=== PATIENT | female | born 1995 | race Hispanic/Latino ===

== ENCOUNTER 2018-10-16 23:24 | Observation (INO) | payer SELFPAY ==
[~2018-10-16] VITALS: Ht 170.2 cm; Wt 139.4 kg
--- OUTSIDE RECORDS SUMMARY | 2018-10-16 23:27 | XMS REPORT | Continuity of Care Document ---
Author Author [facility] Organization [facility] Address [address] [place] [address] ;ext= Care Team Providers Care J2Ee Programmer Name Role Phone DR FRANNY ARCE Admfrancis DR FRANNY ARCE Attfrancis [facility] Admission Diagnosis Code Admission Diagnosis Date [id number] Cough Social History Element Description Code Description Smoking Status Code System Start Date End Date Smoking Status [id number] Current some day smoker SNOMED-CT Problems Code Code System Problem Name Start Date End Date Status [id number] SNOMED-CT Dehydration 06/18/2018 Active 728073764 SNOMED-CT Viral syndrome 06/18/[address] Description 988760247 Drug Treatment Unknown Allergies * No Known Allergies Results Laboratory Results Order: STAT LAB BETA HCG Specimen Source: BLOOD Body Site: [facility] Test Result Flag Range Unit Date 1BHCG II <5.00 H 0.00-4.80 IU/L 06/18/2018 15:40 Note: A NEW EXPANDED METHOD FOR BHCG WILL BE INTRODUCED ON NOVEMBER 25, 2006. THE DYNAMIC RANGE OF THE TEST HAS BEEN INCREASED ALLOWING FOR FEWER DILUTUIONS, AND THE GESTATION WEEKS HAVE BEEN AGGREGATED TO ALLOW FOR EASE OF INTREPRETATION. PLEASE REFER TO THE INTERPRETATION TABLE BELOW. Beta hCG levels in non- individuals=<4.83 IU/L GESTATIONAL AGE: 1-10 weeks 63.70 - 528586.00 IU/L 11-15 weeks 86990.00 - 986022.00 IU/L 16-22 weeks 9383.80 - 38283.00 IU/L 23-40 weeks 1737.20 - 23680.00 IU/L Detection of very Low Levels of hCG does not exclude . Repeat testing after 48 Hrs. is recommended. THIS ASSAY SHOULD NOT BE USED TO DIAGNOSE ANY CONDITION UNRELATED TO . * Performing Lab Footnotes:* [address] [place] [address] [id number] - [address] [facility] [address] [address] [place] [address] [facility] - MD: DIRECTOR JESSICA MORENO Order: STAT LAB CBC W AUTO DIFF Specimen Source: BLOOD Body Site: INC Test Result Flag Range Unit Date 1Leukocytes^^corrected for nucleated erythrocytes:NCnc:Pt:Bld:Qn:Automated count 5.66 4.80-10.80 10^3/ul 06/18/2018 15:40 789-8 1Erythrocytes:NCnc:Pt:Bld:Qn:Automated count 5.43 H 4.20-5.40 10^6/ul 06/18/2018 15:40 718-7 1Hemoglobin:MCnc:Pt:Bld:Qn 14.4 H 12.0-14.0 gm/dl 06/18/2018 15:40 4544-3 1Hematocrit:VFr:Pt:Bld:Qn:Automated count 44.7 37.0-47.0 % 06/18/2018 15:40 787-2 1Erythrocyte mean corpuscular volume:EntVol:Pt:RBC:Qn:Automated count 82.3 81.0-99.0 fL 06/18/2018 15:40 785-6 1Erythrocyte mean corpuscular hemoglobin:EntMass:Pt:RBC:Qn:Automated count 26.5 L 27.0-31.0 pg 06/18/2018 15:40 786-4 1Erythrocyte mean corpuscular hemoglobin concentration:MCnc:Pt:RBC:Qn:Automated count 32.2 L 33.0-37.0 gm/dl 06/18/2018 15:40 777-3 1Platelets:NCnc:Pt:Bld:Qn:Automated count 219 130-400 10^3/ul 06/18/2018 15:40 788-0 1Erythrocyte distribution width:Ratio:Pt:RBC:Qn:Automated count 14 11.5-14.5 % 06/18/2018 15:40 56118-6 1Platelet mean volume:EntVol:Pt:Bld:Qn:Automated count 9.9 A 7.4-10.4 fL 06/18/2018 15:40 770-8 1Neutrophils/100 leukocytes:NFr:Pt:Bld:Qn:Automated count 40.9 L 42.0-75.0 % 06/18/2018 15:40 736-9 1Lymphocytes/100 leukocytes:NFr:Pt:Bld:Qn:Automated count 47 H 13.0-42.0 % 06/18/2018 15:40 5905-5 1Monocytes/100 leukocytes:NFr:Pt:Bld:Qn:Automated count 11 4.0-14.0 % 06/18/2018 15:40 713-8 1Eosinophils/100 leukocytes:NFr:Pt:Bld:Qn:Automated count 0.2 L 1.0-3.0 % 06/18/2018 15:40 706-2 1Basophils/100 leukocytes:NFr:Pt:Bld:Qn:Automated count 0.4 L 1.0-3.0 % 06/18/2018 15:40 1IG% 0.5 H 0.0-0.4 % 06/18/2018 15:40 * Performing Lab Footnotes:* [address] [place] [address] - [id number] - [address] [place] [address] [facility] - : DIRECTOR JESSICA MORENO Order: STAT LAB CHEM 8 Specimen Source: BLOOD Body Site: LOINC Test Result Flag Range Unit Date 1Sodium 140 138-146 mmol/l 06/18/2018 15:40 1Potassium 3.8 3.5-4.9 mmol/l 06/18/2018 15:40 1Chloride 101 98-109 mmol/l 06/18/2018 15:40 1IONIZED CALCIUM 1.08 06/18/2018 15:40 1CO2 26 24-29 mmol/l 06/18/2018 15:40 1Glucose 185 H 70-105 mg/dl 06/18/2018 15:40 1BUN 6 6-17 mg/dl 06/18/2018 15:40 1Creatinine 0.4 L 0.6-1.3 mg/dl 06/18/2018 15:40 * Performing Lab Footnotes:* [address] [place] [address] - [id number] - [address] [address] [place] - MD: DIRECTOR JESSICA MORENO Order: STAT LAB FLU SCREEN- new code Specimen Source: NASOPHARYNGEAL SWAB Body Site: LOINC Test Result Flag Range Unit Date 1Flu A Screen Negative Negative 06/18/2018 15:40 Note: EFFECTIVE 04/06/2013 - A method change has occurred. A molecular method for Flu testing will replace the current method. Both Flu A and Flu B will be tested and results will continue to be listed as 'Negative or Positive'. While this method is more specific in the detection of both strains, confirmatory testing is available upon request. ldh 1Flu B Screen Negative Negative 06/18/2018 15:40 Note: EFFECTIVE 04/06/2013 - A method change has occurred. A molecular method for Flu testing will replace the current method. Both Flu A and Flu B will be tested and results will continue to be listed as 'Negative or Positive'. While this method is more specific in the detection of both strains, confirmatory testing is available upon request. ldh * Performing Lab Footnotes:* [address] [place] [address] - [id number] - [address] [facility] [address] [place] [address] [facility] - : DIRECTOR JESSICA MORENO Radiology Results Order: [id number] XR CHEST 2 PA LATERAL* Exam Completion Date:06/18/2018 15:34 Procedure: XR CHEST 2 PA LATERAL Exam Date: 06/18/2018 3:34 PMOrdering Pr ovider: SERGEI CASILLASClinical Indication: [id number]: CoughComparison: Chest x -ray November 04, 2013.Findings: Mediastinal shadows are normal in size. No consolid ation, pneumothorax orsizable effusion. No acute bony findings. Imaged upper abd omen normal. Impression: No acute chest process. This final report was elec tronically signed by Dr Marquis Tenorio DO 06/18/20184:17 PMDictated By: Bibiana TENORIO USTINDate: 06/18/2018 16:17 Vital Signs Vitals Value Date Body Temperature 98.6 F 06/18/2018 Pulse Rate 92 (beats)/min 06/18/2018 Respiratory Rate 18 (breaths)/min 06/18/2018 O2% BldC Oximetry 96 % 06/18/2018 BP Systolic 127 mmHg 06/18/2018 BP Diastolic 92 mmHg 06/18/2018 Height 67 in 06/18/2018 Weight Measured 301.37 lbs 06/18/2018 BSA (Body Surface Area) 2.407 m2 06/18/2018 BMI (Body Mass Index) 47.2 kg/m2 06/18/2018 Advance Directives PT HAS NEITHER Directive Type Effective Date Personal Coach Notes Supporting Document Name Address Phone No Directive Type specified 06/24/2012 21:27 Not Specified Not Specified Not Specified None No Patient does NOT have Living Will Directive Type Effective Date Personal Coach Notes Supporting Document Name Address Phone No Directive Type specified 11/04/2013 16:32 Not Specified Not Specified Not Specified None No Family History * No Data Reported Plan of Care * No data in the system Procedures Code Code System Procedure Name Target Site Date of Procedure XR CHEST 2 PA LATERAL 06/18/2018 16:23 Encounters Date Code Diagnosis Status (ICD10) - E860 DEHYDRATION Active Immunizations * No data in the system Functional Status * No data in the system Hospital Discharge Instructions * No data in the system
--- OUTSIDE RECORDS SUMMARY | 2018-10-16 23:27 | XMS REPORT ---
Author Author [facility] Address Unknown Phone Unavailable Care Team Providers Care Railroad Brakeman Name Role Phone Unavailable Unavailable Payers Payer Name Policy Type Policy Number Effective Date Expiration Date Problems This patient has no known problems. Allergies, Adverse Reactions, Alerts Allergy Name Allergy Type Status Severity Reaction(s) Onset Date Inactive Date Treating Clinician Comments No Known Allergies DA Active U 2018-10-16 00:00:00 No Known Allergies DA Active U 2017-06-15 00:00:00 Medications This patient has no known medications. Results Test Description Test Time Test Comments Text Results Atomic Results Result Comments XR CHEST 2 PA LATERAL 2018-06-18 16:23:43 Procedure: XR CHEST 2 PA LATERAL Exam Date: 06/18/2018 3:34 PMOrdering Provider: SERGEI Espinalinical Indication: [id number]: CoughComparison: Chest x-ray November 04, 2013.Findings:Mediastinal shadows are normal in size. No consolidation, pneumothorax orsizable effusion. No acute bony findings. Imaged upper abdomen normal.Impression: No acute chest process.This final report was electronically s igned by Dr Marquis Tenorio DO 06/18/20184:17 PMDictated By: MARINA TENORIOate: 06/18/2018 16:17 STAT LAB BETA HCG II 2018-06-18 16:06:00 BHCG II (test code=BHCGII) <5.00 IU/L 0.00-4.80 A NEW EXPANDED METHOD FOR BHCG WILL BE INTRODUCED ON NOVEMBER 25, 2006. THE DYNAMIC RANGE OF THE TEST HAS BEEN INCREASED ALLOWING FOR FEWER DILUTUIONS, AND THE GESTATION WEEKS HAVE BEEN AGGREGATED TO ALLOW FOR EASE OF INTREPRETATION. PLEASE REFER TO THE INTERPRETATION TABLE BELOW. Beta hCG levels in non- individuals=<4.83 IU/L GESTATIONAL AGE: 1-10 weeks 63.70 - 133379.00 IU/L 11- 15 weeks 92930.00 - 594391.00 IU/L 16-22 weeks 9383.80 - 01250.00 IU/L 23-40 weeks 1737.20 - 93435.00 IU/L Detection of very Low Levels of hCG does not exclude . Repeat testing after 48 Hrs. is recommended. THIS ASSAY SHOULD NOT BE USED TO DIAGNOSE ANY CONDITION UNRELATED TO . STAT LAB FLU [id number] 16:02:00* Test Item Value Reference Range Comments Flu A Screen (test code=FLUA) Negative Negative EFFECTIVE 04/06/2013 - A method change has occurred. A molecular method for Flu testing will replace the current method. Both Flu A and Flu B will be tested and results will continue to be listed as "Negative or Positive". While this method is more specific in the detection of both strains, confirmatory testing is available upon request. ldh Flu B Screen (test code=FLUB) Negative Negative EFFECTIVE 04/06/2013 - A method change has occurred. A molecular method for Flu testing will replace the current method. Both Flu A and Flu B will be tested and results will continue to be listed as "Negative or Positive". While this method is more specific in the detection of both strains, confirmatory testing is available upon request. ldh STAT LAB CHEM [id number] 15:51:00* Test Item Value Reference Range Comments Sodium (test code=NA) 140 mmol/l 138-146 Potassium (test code=K) 3.8 mmol/l 3.5-4.9 Chloride (test code=CL) 101 mmol/l 98-109 IONIZED CALCIUM (test code=ICA) 1.08 CO2 (test code=CO2) 26 mmol/l 24-29 Glucose (test code=GLU) 185 mg/dl 70-105 BUN (test code=BUN) 6 mg/dl 6-17 Creatinine (test code=CREA) 0.4 mg/dl 0.6-1.3 STAT LAB CBC WITH AUTO [id number] 15:49:00* Test Item Value Reference Range Comments WBC (test code=WBC) 5.66 10\\S\\3/ul 4.80-10.80 RBC (test code=RBC) 5.43 10\\S\\6/ul 4.20-5.40 Hemoglobin (test code=HGB) 14.4 gm/dl 12.0-14.0 Hematocrit (test code=HCT) 44.7 % 37.0-47.0 MCV (test code=MCV) 82.3 fL 81.0-99.0 MCH (test code=MCH) 26.5 pg 27.0-31.0 MCHC (test code=MCHC) 32.2 gm/dl 33.0-37.0 Platelet (test code=PLT) 219 10\\S\\3/ul 130-400 RDW (test code=RDWVC) 14.0 % 11.5-14.5 MPV (test code=MPV) 9.9 fL 7.4-10.4 NE% (test code=NE) 40.9 % 42.0-75.0 LY% (test code=LY) 47.0 % 13.0-42.0 MO% (test code=MO) 11.0 % 4.0-14.0 EO% (test code=EO) 0.2 % 1.0-3.0 BA% (test code=BA) 0.4 % 1.0-3.0 IG% (test code=IG%) 0.5 % 0.0-0.4
[2018-10-17] VITALS (10 sets, daily range): BP systolic 120–154; BP diastolic 76–95
[2018-10-17] MEDS ORDERED: HYDROCODONE/APAP 5MG-325MG TAB PO STA (00:55)
[2018-10-17] MEDS ORDERED: ONDANSETRON HCL 4 MG ORAL DISINTEGRATING TAB PO STA (00:55)
--- NOTE | 2018-10-17 01:26 | Diagnostic Imaging Report ---
History:Right ear pain with drainage Comparison studies:None Technique: Axial, coronal and sagittal images through the temporal bones. Intravenous contrast: None Dose modulation, iterative reconstruction, and/or weight based adjustment of the mA/kV was utilized to reduce the radiation dose to as low as reasonably achievable. Findings: Right: External auditory canal: Narrow with skin thickening and adjacent fatty stranding Tympanic membrane: Thickened Middle ear and mastoid cavities: Partially opacified middle ear with mild mucosal thickening of the mastoid cavity Mastoid air cells: Partially opacified Ossicles: The malleus, incus and stapes are grossly intact. Cochlea, vestibule, internal acoustic canals: Grossly intact. Semicircular canals: Grossly intact. Not dehiscent. Endolymphatic duct: Normal in size. No dilated. Petrous apex: Unremarkable, not aerated. Facial canal: No abnormalities in the labyrinthine, tympanic or mastoid segments. Left: External auditory canal: Clear and patent Tympanic membrane: Barely visualized and unremarkable. Middle ear and mastoid cavities: Clear. Mastoid air cells: Clear Ossicles: The malleus, incus and stapes are grossly intact. Cochlea, vestibule, internal acoustic canals: Grossly intact. Semicircular canals: Grossly intact. Not dehiscent. Endolymphatic duct: Normal in size. No dilated. Petrous apex: Unremarkable, not aerated. Facial canal: No abnormalities in the labyrinthine, tympanic or mastoid segments. Physical thickening at the right maxillary sinus related to nonspecific inflammatory changes IMPRESSION: Right temporal bone: 1. Otomastoiditis 2. Otitis externa Left temporal bone: 1. Normal Signed by: DR Michel Cabrera M.D. on 10/17/2018 1:29 AM
[2018-10-17] MEDS ORDERED: CEFEPIME HCL 1 GM VIAL IV STA (02:07)
[2018-10-17] MEDS ORDERED: CEFEPIME 1GM/NS 0.9% 50 ML 50 ML IV ONE (02:10)
[2018-10-17] MEDS ORDERED: SODIUM CHLORIDE FLUSH 10 ML SYR INJ PRN (02:15)
[2018-10-17] MEDS: CEFEPIME 1GM/NS 0.9% 50 ML 50 ML IV SCH ×2 (02:27→14:26)
[2018-10-17] MEDS: MORPHINE SULFATE INJ 4 MG/ML INJ 1ML IV PRN ×5 (03:17→23:45)
[2018-10-17] MEDS ORDERED: MORPHINE SULFATE INJ 4 MG/ML INJ 1ML ONE (03:20)
--- NOTE | 2018-10-17 04:18 | NUR ---
Patient arrived to unit [facility] on stretcher with mother at side. A&OX3. Oriented to room, environment and call light. Instructed to call for onset of pain or SOB. Call light within reach. Will continue to monitor.
[2018-10-17] MEDS ORDERED: MOTRIN200 MG PO (04:37)
[2018-10-17] MEDS ORDERED: TYLENOL EXTRA500 MG PO (04:37)
--- NOTE | 2018-10-17 05:21 | NUR ---
Spoke with Debby medrano [facility] regarding blood cultures. Blood cultures drawn and will bring in AM after shift. EMS forgot to transfer to hospital.
--- NOTE | 2018-10-17 06:00 | NUR ---
Patient in bed resting with mother at bedside. Call light within reach. Will continue to monitor.
--- NOTE | 2018-10-17 06:16 | NUR ---
Spoke with Dr Abdi regarding new consult. Will see patient.
[2018-10-17] MEDS: ONDANSETRON HCL INJ 2MG/ML 2ML 2 MG/ML VIAL IV PRN ×4 (07:39→23:45)
[2018-10-17] MEDS ORDERED: NEOMYCIN/POLYMYX/HYDROC (OTIC) 10 ML BTL OT SCH (09:00)
[2018-10-17] MEDS: CIPROFLOXACIN-DEXAMETHASONE (OTIC) 7.5 ML BOTTLE OT SCH ×2 (09:53→17:52)
--- NOTE | 2018-10-17 12:04 | Consultation ---
DATE OF CONSULTATION: 10/17/2018 HISTORY OF PRESENT ILLNESS: I was kindly asked to see this 23-year-old woman for evaluation of right-sided ear infection. The patient has no previous otologic history, but reported right-sided ear pain beginning approximately eight days ago. She was begun on topical therapy as an outpatient, but failed topical therapy with progressive pain in her right ear, presented to the emergency department for evaluation and treatment. Subsequent workup included CT scan, which demonstrated partially opacified middle ear and mild mucosal thickening of the mastoid cavity with partial opacification of the mastoid air cells as well as thickening of the ear canal with adjacent fatty stranding. The patient reports no decreased hearing or tinnitus, but does have difficulty walking due to balance problems. PAST MEDICAL HISTORY: Reviewed in detail in the chart. PAST SURGICAL HISTORY: Reviewed in detail in the chart. PHYSICAL EXAMINATION: On examination, the left pinna was normal. Left external auditory canal was normal. Left tympanic membrane was mobile and normal. There was no postauricular pain, swelling, or tenderness. The right pinna had minimal edema at the entrance of the external auditory canal. The external auditory canal was edematous with mucopus within the canal, the tympanic membrane could not be visualized. There was tenderness of the right postauricular area with no overlying erythema. There was tenderness of the right preauricular area, which was worse when opening her mouth. There was swelling of the preauricular area extending to the level of the mandible. Intraoral examination was unremarkable. Pharyngeal examination was normal. There was no palpable cervical adenopathy. ASSESSMENT: 1. Primary otitis externa with secondary acute mastoiditis. 2. Vertigo secondary to the primary otitis externa with secondary acute mastoiditis. PLAN: 1. No surgical indications at this time. 2. Continue with current topical therapy with Ciprodex. 3. Continuation of current antibiotic therapy with cefepime. MD RAJ Smith/MARI /[id number]
--- NOTE | 2018-10-17 12:58 | NUR ---
DISCUSSED IN BARRIER ROUNDS ON ABX AND GETTING IN EAR, KRISHNA CONSULTED.
--- NOTE | 2018-10-17 13:50 | NUR ---
Visit made by the Spiritual Care Department Pastoral Visitor, Tara Hutson. PV provided pastoral presence, prayer, hospitality, and supportive listening. Pastoral Visitor informed pt/family of the scope of [employer] and availability. ZIGGY WHITE Technical Services Librarian Spiritual Care Department O: [phone] Pager: [phone] ([phone] number calling from)
--- NOTE | 2018-10-17 19:00 | NUR ---
Report and walking rounds completed. Patient in bed with family at bedside. No issues or concerns. Call light within reach. Will continue to monitor.
[2018-10-18] MEDS ORDERED: SODIUM CHLORIDE 0.9% 250ML 250 ML ONE (02:02)
[2018-10-18] MEDS: CEFEPIME 1GM/NS 0.9% 50 ML 50 ML IV SCH (02:07)
[2018-10-18 04:00] VITALS: BP 125/67
[2018-10-18] MEDS: ONDANSETRON HCL INJ 2MG/ML 2ML 2 MG/ML VIAL IV PRN ×2 (04:25→09:10)
[2018-10-18] MEDS: MORPHINE SULFATE INJ 4 MG/ML INJ 1ML IV PRN ×2 (04:25→09:10)
[2018-10-18 05:32] LABS: BASOPHILS # (AUTO) 0.1 (0.0-0.1); BASOPHILS % 0.4 % (0.0-1.0); EOSINOPHILS # (AUTO) 0.1 (0.0-0.4); EOSINOPHILS % 0.8 % (0.0-6.0); HEMATOCRIT 40.2 % (34.2-44.1); HEMOGLOBIN 12.8 g/dL (12.0-16.0); MEAN CORPUSCULAR HEMOGLOBIN 26.3 pg (28-32); MEAN CORPUSCULAR HGB CONC 31.8 g/dL (31-35); MEAN CORPUSCULAR VOLUME 82.7 fL (81-99); MONOCYTES # (AUTO) 1.4 (0.2-0.8); MONOCYTES % 7.5 % (4.4-11.3); NEUTROPHILS # (AUTO) 12.1 (2.1-6.9); PLATELET COUNT 298 x10e3/uL (140-360); RED BLOOD COUNT 4.86 x10e6/uL (3.6-5.1); RED CELL DISTRIBUTION WIDTH 13.3 % (11.7-14.4)
[2018-10-18 05:52] LABS: ANION GAP 14.5 mmol/L (8-16); BLOOD UREA NITROGEN 7 mg/dL (7-26); BUN/CREATININE RATIO 10 (6-25); CALCIUM 9.4 mg/dL (8.4-10.2); CARBON DIOXIDE 25 mmol/L (22-29); CHLORIDE 100 mmol/L (98-107); CREATININE, SERUM 0.72 mg/dL (0.57-1.11); EST GLOMERULAR FILTRATION RATE > 60 ML/MIN (60-); GLUCOSE 183 mg/dL (74-118); POTASSIUM 3.5 mmol/L (3.5-5.1); SODIUM 136 mmol/L (136-145)
--- NOTE | 2018-10-18 06:00 | NUR ---
Patient in bed with sister at bedside. No issues or concerns. Call light remains in reach. Will continue to monitor
[2018-10-18 08:26] VITALS: BP 114/79
[2018-10-18 08:27] LABS: LYMPHOCYTES % (MANUAL) 21 % (19-48); MONOCYTES % (MANUAL) 12 % (3.4-9.0); NEUTROPHILS % (MANUAL) 67 % (40-74)
[2018-10-18 08:28] LABS: PLATELET ESTIMATE ADEQUATE; PLATELET MORPHOLOGY COMMENT NORMAL; RBC MORPHOLOGY COMMENT NORMAL
[2018-10-18] MEDS: CIPROFLOXACIN-DEXAMETHASONE (OTIC) 7.5 ML BOTTLE OT SCH (09:00)
[2018-10-18 09:10] VITALS: BP 114/79
[2018-10-18 12:15] VITALS: BP 150/83
[2018-10-18] MEDS ORDERED: AUGMENTIN 875-1 EACH PO (13:53)
[2018-10-18] MEDS ORDERED: medrol dose pack (13:53)
[2018-10-18] MEDS ORDERED: TYLENOL WITH C1 EACH PO (13:54)
--- NOTE | 2018-10-18 14:30 | NUR ---
patient alert and oriented. discharge instructions given at this time, patient verbalized understanding. IV discontinued, catheter in tact and small dressing applied. patient to be wheeled out to personal auto for family to drive home.
--- NOTE | 2018-11-22 22:52 | Discharge Summary ---
CHIEF COMPLAINT: Swelling and pain, right side of face. FINAL DIAGNOSES: Right otitis externa, mastoiditis, obesity. DISPOSITION: Home. HOSPITAL COURSE: A 23-year-old female, no known past medical history on no medications, brought to the ER with a 1-week history of progressive swelling and pain right face associated with dizziness, seen by physician at a local clinic and was given ear drops. She has had no improvement, went to [facility] ER the night prior to admission. Seen in the ER there as mentioned and sent home given no treatment. Denies having any fever or chills. No earache. She was evaluated in the ER. Noted that the right ear canal was almost shut, swollen and tender. Abdomen was showing evidence of obesity and with further review and evaluation, the patient was admitted to facility regarding right earache, headache, acute otitis externa, right mastoiditis per CT. The patient will be started on IV antibiotics from the given analgesic issues, regarding p.o. medications, will be requesting an ENT followup. With admission to ENT, we called in Dr. Abdi for evaluation of the external otitis and with his review, his impression was primary otitis externa with secondary acute mastoiditis, vertigo secondary to primary otitis externa with secondary acute mastoiditis. There are no surgical indications at this time. Agree with current care with topical drops as well as IV antibiotics. She was placed in IMCU. She was on a cardiac diet. She was receiving IV cefepime. She was given morphine for pain management. She was on IV fluids. She was given Cipro ear drops. Her vital signs were stable. Laboratory studies were being further evaluated. Diagnostic x-rays were obtained. Patient was improving, was feeling better, was resting comfortably, was in no acute distress. She was being cleared for discharge to be treated further at home with p.o. medications. She was taken off her IV medications and she was released home on 10/18/2018 in stable condition. IMAGING: CT maxillofacial finding shows otomastoiditis, otitis externa, left temporal bone normal. Cultures of blood were negative. LABORATORY STUDIES: Shows a CBC initial white cell count 18,000, H and H are stable. Platelets stable. Chemistries reveal stable electrolytes. Kidney function stable. Glucose is 183. Patient responded well, was discharged home as mentioned, she was taken off her IVs. With her discharge, she will continue on her current diet. No equipments or supplies are necessary. No drains or Ceballos was needed. Activity level as directed by me as well as by Dr. Abdi. Followup care, she will be returning back to Dr. Abdi in his office as directed. It is noted that she has no PCP documented on her demographic sheet and request that she follow up with me in my office within 2-3 weeks or return to the ER if her symptoms still persist. MEDICATIONS: She will be on acetaminophen extra strength 1000 mg p.o. q.6 p.r.n. for pain. She will be on Codeine, Tylenol No.3 at 300 mg tablet p.o. q.6 hours p.r.n. for pain, Augmentin 875 mg p.o. b.i.d. #20, Motrin 400 mg p.o. q.6 hours p.r.n. and she will also be receiving a Medrol Dosepak, take as directed. Dictated by SHERRY Lion MD RUSSELL Haro/MARI /[id number]
== END 2018-10-18 15:31 | disposition home or self-care (01) ==
LOC: FSED 23:24 → ERHOLD 10-17 02:21 → IMCU 10-17 04:18
DX: H60.501 Unspecified acute noninfective otitis externa, right ear (principal); H70.001 Acute mastoiditis without complications, right ear; R42 Dizziness and giddiness; R51 Headache; E66.9 Obesity, unspecified; Z68.42 Body mass index [BMI] 45.0-49.9, adult
CPT/HCPCS: 36415; 70486; 80048 ×2; 85025 ×2; 87040; 99284; G0378 ×2; J0692 ×3; J2270 ×2; J2405 ×2; J7050; Q0162

== ENCOUNTER 2019-06-24 13:59 | Emergency (ER) | payer SELFPAY ==
[~2019-06-24] VITALS: Ht 170.2 cm; Wt 140.2 kg
[~2019-06-24 13:59] MED LIST: AUGMENTIN 875-1 EACH PO; MOTRIN200 MG PO; TYLENOL EXTRA500 MG PO; TYLENOL WITH C1 EACH PO; medrol dose pack
[2019-06-24] MEDS ORDERED: ONDANSETRON HCL INJ 2MG/ML 2ML 2 MG/ML VIAL IV ONE (14:16)
[2019-06-24] MEDS ORDERED: SODIUM CHLORIDE 0.9% 1000ML 1,000 ML IV SCH (14:30)
[2019-06-24] MEDS ORDERED: KETOROLAC TROMETHAMINE 30 MG/ML VIAL IV ONE (15:00)
[2019-06-24] MEDS ORDERED: KETOROLAC TROMETHAMINE 30 MG/ML VIAL ONE (15:26)
--- NOTE | 2019-06-24 17:01 | Diagnostic Imaging Report ---
EXAM: CT Abdomen and Pelvis without contrast INDICATION: Left flank pain. COMPARISON: None. TECHNIQUE: Abdomen and pelvis were scanned utilizing a multidetector helical scanner from the lung base to the pubic symphysis after administration of IV contrast. Coronal and sagittal reformations were obtained. Renal stone protocol was performed. Scan was performed when during portal venous phase. IV CONTRAST: None. ORAL CONTRAST: Water COMPLICATIONS: None RADIATION DOSE: Total DLP: 1991 mGy*cm Estimated effective dose: (DLP x 0.015 x size factor) mSv CTDIvol has been reviewed. It is below the limits set by the Radiation Protocol Committee (RPC). FINDINGS: LINES and TUBES: None. LOWER THORAX: Patchy dependent atelectasis. HEPATOBILIARY: No evidence of focal lesion. No biliary ductal dilation. GALLBLADDER: Decompressed. No radio-opaque stones or sludge. No wall thickening. SPLEEN: No splenomegaly. PANCREAS: No focal masses or ductal dilatation. ADRENALS: No adrenal nodules KIDNEYS/URETERS: No evidence of hydronephrosis, solid mass, or stone. GI TRACT: No evidence of wall thickening or distension. Appendix is normal. PELVIC ORGANS/BLADDER: Unremarkable. LYMPH NODES: No lymphadenopathy. VESSELS: Unremarkable. PERITONEUM / RETROPERITONEUM: No free air or fluid. BONES AND SOFT TISSUES: Unremarkable. CONCLUSION: Unremarkable examination. No evidence of nephrolithiasis. Signed by: Dr. Estela Ross MD on 06/24/2019 4:59 PM
[2019-06-24] MEDS ORDERED: CEFTRIAXONE SOD 1 GM/NS 50 ML 50 ML IV ONE ×2 (17:15→17:41)
[2019-06-24] MEDS ORDERED: KEFLEX500 MG PO (17:33)
[2019-06-24] MEDS ORDERED: IBUPROFEN600 MG PO (17:33)
[2019-06-24] MEDS ORDERED: METFORMIN HCL500 MG PO (17:33)
--- NOTE | 2019-06-24 17:37 | NUR ---
Urine culture collected and sent to the hospital lab via lead designer.
[2019-06-24 18:20] VITALS: BP 115/70
== END 2019-06-24 18:16 | disposition home or self-care (01) ==
LOC: FSED 13:59
DX: R10.13 Epigastric pain (principal); R10.12 Left upper quadrant pain; R11.0 Nausea; N10 Acute pyelonephritis; I10 Essential (primary) hypertension
CPT/HCPCS: 74176; 80048; 80076; 81003; 81025; 85025; 87086; 96374; 96375; 99284; J0696; J1885; J2405; J7030

== ENCOUNTER 2020-02-26 22:50 | Emergency (ER) | payer SELFPAY ==
[~2020-02-26] VITALS: Ht 170.2 cm; Wt 131.1 kg
[~2020-02-26 22:50] MED LIST changes: +IBUPROFEN600 MG PO; +KEFLEX500 MG PO; +METFORMIN HCL500 MG PO
[2020-02-27] MEDS ORDERED: KETOROLAC TROMETHAMINE 30 MG/ML VIAL IV STA (01:12)
[2020-02-27] MEDS ORDERED: ONDANSETRON HCL INJ 2MG/ML 2ML 2 MG/ML VIAL IV STA (01:12)
[2020-02-27] MEDS ORDERED: SODIUM CHLORIDE 0.9% 1000ML 1,000 ML IV SCH (01:15)
[2020-02-27] MEDS ORDERED: SODIUM CHLORIDE 0.9% 1000ML 1,000 ML ONE (01:21)
[2020-02-27] MEDS ORDERED: ONDANSETRON HCL INJ 2MG/ML 2ML 2 MG/ML VIAL ONE (01:22)
[2020-02-27] MEDS ORDERED: KETOROLAC TROMETHAMINE 30 MG/ML VIAL ONE (01:22)
[2020-02-27] MEDS ORDERED: CEFTRIAXONE SOD 1 GM/NS 50 ML 50 ML IV ONE ×2 (03:30→03:31)
[2020-02-27] MEDS ORDERED: AZITHROMYCIN 250 MG TAB PO STA (03:30)
[2020-02-27] MEDS ORDERED: DEXAMETHASONE SOD PHOS INJ 4 MG/ML VIAL IV ONE (03:30)
[2020-02-27] MEDS ORDERED: AZITHROMYCIN 250 MG TAB ONE (03:31)
[2020-02-27] MEDS ORDERED: DEXAMETHASONE SOD PHOS INJ 4 MG/ML VIAL ONE (03:31)
[2020-02-27] MEDS ORDERED: ZITHROMAX500 MG PO (03:38)
[2020-02-27] MEDS ORDERED: CEFDINIR300 MG PO (03:39)
[2020-02-27] MEDS ORDERED: DECADRON6 MG PO (03:40)
[2020-02-27] MEDS ORDERED: PROAIR HFA INH8.5 GM INH (03:42)
[2020-02-27] MEDS ORDERED: ONDANSETRON ODT8 MG PO (03:43)
== END 2020-02-27 04:01 | disposition home or self-care (01) ==
LOC: FSED 23:30
DX: U07.1 COVID-19 (principal); J18.9 Pneumonia, unspecified organism; R07.9 Chest pain, unspecified; R73.9 Hyperglycemia, unspecified; R74.8 Abnormal levels of other serum enzymes; J98.01 Acute bronchospasm
CPT/HCPCS: 71046; 80053; 81003; 81025; 82553; 84484; 85025; 96374; 96375; 96376; 99284; J0696; J1100; J1885; J2405; J7030

== ENCOUNTER 2020-04-19 20:52 | Emergency (ER) | payer SELFPAY ==
[~2020-04-19] VITALS: Ht 170.2 cm; Wt 131.1 kg
[~2020-04-19 20:52] MED LIST changes: +CEFDINIR300 MG PO; +DECADRON6 MG PO; +ONDANSETRON ODT8 MG PO; +PROAIR HFA INH8.5 GM INH; +ZITHROMAX500 MG PO
[2020-04-19 21:17] LABS: BASOPHILS # (AUTO) 0.1 (0.0-0.1); BASOPHILS % 0.5 % (0.0-1.0); EOSINOPHILS # (AUTO) 0.1 (0.0-0.4); EOSINOPHILS % 0.7 % (0.0-6.0); HEMATOCRIT 46.8 % (34.2-44.1); HEMOGLOBIN 15.2 g/dL (12.0-16.0); LYMPHOCYTES # (AUTO) 4.1 (1.0-3.2); LYMPHOCYTES % 27.4 % (18.0-39.1); MEAN CORPUSCULAR HEMOGLOBIN 26.9 pg (28-32); MEAN CORPUSCULAR HGB CONC 32.5 g/dL (31-35); MEAN CORPUSCULAR VOLUME 82.8 fL (81-99); MONOCYTES # (AUTO) 0.9 (0.2-0.8); MONOCYTES % 5.9 % (4.4-11.3); NEUTROPHILS # (AUTO) 9.6 (2.1-6.9); NEUTROPHILS % 64.5 % (38.7-80.0); PLATELET COUNT 242 x10e3/uL (140-360); RED BLOOD COUNT 5.65 x10e6/uL (3.6-5.1); RED CELL DISTRIBUTION WIDTH 13.9 % (11.7-14.4)
[2020-04-19 21:32] LABS: CLARITY,URINE HAZY (CLEAR); COLOR,URINE YELLOW (YELLOW)
[2020-04-19 21:33] LABS: ALANINE AMINOTRANSFERASE 112 IU/L (0-55); ALBUMIN 3.8 g/dL (3.5-5.0); ALKALINE PHOSPHATASE 73 IU/L (40-150); ANION GAP 14.7 mmol/L (8-16); BLOOD UREA NITROGEN 11 mg/dL (7-26); BUN/CREATININE RATIO 17 (6-25); CARBON DIOXIDE 23 mmol/L (22-29); CHLORIDE 98 mmol/L (98-107); CREATININE, SERUM 0.65 mg/dL (0.57-1.11); EST GLOMERULAR FILTRATION RATE > 60 ML/MIN (60-); GLUCOSE 317 mg/dL (74-118); POTASSIUM 3.7 mmol/L (3.5-5.1); SODIUM 132 mmol/L (136-145)
[2020-04-19 21:36] LABS: KETONES,URINE 2+ (NEGATIVE); LEUKOCYTE ESTERASE ,URINE NEGATIVE (NEGATIVE); NITRITE,URINE NEGATIVE (NEGATIVE); PROTEIN,URINE DIPSTICK TRACE (NEGATIVE)
[2020-04-19 21:37] LABS: BACTERIA,URINE FEW /HPF; EPITHELIAL CELLS,URINE MODERATE /LPF
[2020-04-19 21:38] LABS: MUCUS,URINE FEW (RARE); YEAST,URINE FEW
[2020-04-19] MEDS ORDERED: CEFTRIAXONE SOD 1 GM/NS 50 ML 50 ML IV STA (22:28)
== END 2020-04-20 02:24 | disposition other institution (70) ==
LOC: ER 20:59
DX: O00.90 Unspecified ectopic pregnancy without intrauterine pregnancy (principal); R10.32 Left lower quadrant pain; N83.512 Torsion of left ovary and ovarian pedicle; O23.41 Unspecified infection of urinary tract in pregnancy, first trimester; R73.9 Hyperglycemia, unspecified
CPT/HCPCS: 36415; 76801; 76830; 80053; 81001; 84702; 85025; 86850; 86900; 93976; 99284; J0696

== ENCOUNTER 2022-09-28 23:20 | Emergency (ER) | payer OTHER ==
[~2022-09-28] VITALS: Ht 170.2 cm; Wt 122.5 kg
[2022-09-28] MEDS ORDERED: SODIUM CHLORIDE 0.9% 1000ML 1,000 ML IV STA (23:37)
[2022-09-28] MEDS ORDERED: ONDANSETRON HCL INJ 2MG/ML 2ML 2 MG/ML VIAL IV ONE (23:45)
[2022-09-28] MEDS ORDERED: KETOROLAC TROMETHAMINE 30 MG/ML VIAL IV ONE (23:45)
[2022-09-28] MEDS ORDERED: FAMOTIDINE 20 MG/2 ML VIAL IV ONE ×2 (23:45→23:50)
[2022-09-28] MEDS ORDERED: IOPAMIDOL 370 MG/ML 100 ML INFUS..BTL INJ ONE (23:47)
[2022-09-28] MEDS ORDERED: ONDANSETRON HCL INJ 2MG/ML 2ML 2 MG/ML VIAL ONE (23:49)
[2022-09-28] MEDS ORDERED: SODIUM CHLORIDE 0.9% 1000ML 1,000 ML ONE (23:49)
[2022-09-28] MEDS ORDERED: KETOROLAC TROMETHAMINE 30 MG/ML VIAL ONE (23:49)
[2022-09-29] MEDS ORDERED: INSULIN REGULAR, HUMAN 100 UNIT/1 ML IV ONE (00:15)
[2022-09-29] MEDS ORDERED: DIFLUCAN100 MG PO (01:19)
[2022-09-29 01:24] VITALS: O2SAT 97
== END 2022-09-29 01:27 | disposition home or self-care (01) ==
LOC: FSED 23:23
DX: R10.9 Unspecified abdominal pain (principal); E11.65 Type 2 diabetes mellitus with hyperglycemia; D72.829 Elevated white blood cell count, unspecified; K76.0 Fatty (change of) liver, not elsewhere classified; E66.01 Morbid (severe) obesity due to excess calories
CPT/HCPCS: 36415; 74177; 80053; 81003; 81025; 82948; 85025; 99284; J1885; J2405; J7030; Q9967